=== PATIENT | male | born 1960 | race Caucasian/White ===

== ENCOUNTER 2017-10-12 09:52 | Emergency (ER) | payer SELFPAY ==
[~2017-10-12] VITALS: Wt 95.3 kg
[~2017-10-12 09:52] MED LIST: MOTRIN800 MG PO; PROTONIX40 MG PO
[2017-10-18] MEDS ORDERED: COLACE100 MG PO (12:27)
[2017-10-18] MEDS ORDERED: NORCO 5-325 TA1 EACH PO ×2 (12:27→12:56)
[2017-10-18] MEDS ORDERED: IBUPROFEN600 MG PO (12:27)
== END 2017-10-12 10:37 | disposition home or self-care (01) ==
LOC: ED 09:52
DX: S49.91XA Unspecified injury of right shoulder and upper arm, initial encounter (principal); K46.9 Unspecified abdominal hernia without obstruction or gangrene; R10.31 Right lower quadrant pain; F17.200 Nicotine dependence, unspecified, uncomplicated; Z90.49 Acquired absence of other specified parts of digestive tract; Z79.899 Other long term (current) drug therapy; W19.XXXA Unspecified fall, initial encounter; Y93.89 Activity, other specified; Y92.099 Unspecified place in other non-institutional residence as the place of occurrence of the external cause; Y99.9 Unspecified external cause status

== ENCOUNTER → 2017-10-18 | Day surgery (SDC) | payer SELFPAY ==
[~2017-10-18] VITALS: Ht 177.8 cm; Wt 95.3 kg
[~2017-10-18] MED LIST changes: +COLACE100 MG PO; +IBUPROFEN600 MG PO; +NORCO 5-325 TA1 EACH PO
[2017-10-18 08:00] VITALS: BP 129/89
[2017-10-18 12:17] VITALS: BP 153/76
[2017-10-18 12:32] VITALS: BP 169/83
[2017-10-18 12:47] VITALS: BP 163/94
[2017-10-18 13:01] VITALS: BP 137/79
[2017-10-18 13:17] VITALS: BP 163/94
== END | disposition home or self-care (01) ==
LOC: SDC 10-14 09:30
DX: K40.90 Unilateral inguinal hernia, without obstruction or gangrene, not specified as recurrent (principal); K21.9 Gastro-esophageal reflux disease without esophagitis; Z90.49 Acquired absence of other specified parts of digestive tract; F17.210 Nicotine dependence, cigarettes, uncomplicated; I10 Essential (primary) hypertension; E78.00 Pure hypercholesterolemia, unspecified

== ENCOUNTER 2021-06-30 18:44 | Inpatient (IN) | payer OTHER ==
[~2021-06-30] VITALS: Ht 180.3 cm; Wt 95.4 kg
[2021-06-30 18:48] VITALS: BP 158/86
[2021-06-30 20:15] LABS: HEMATOCRIT 43.3 % (42.0-52.0); MEAN CELL VOLUME 89.5 fl (80.0-94.0); MEAN CORPUSCULAR HGB 33.1 pg (27.0-31.0); MEAN PLATELET VOLUME 11.5 fl (9.6-12.3); PLATELET COUNT AUTOMATED 111 10*3/uL (130-400); RED BLOOD COUNT 4.84 10*6/uL (4.50-5.90); RED CELL DISTRI WIDTH 13.4 % (0-14.5); WHITE BLOOD COUNT 4.1 10*3/uL (4.8-10.8)
[2021-06-30 20:32] LABS: ALKALINE PHOSPHATASE 193 U/L (45-117); BUN 11 mg/dl (7-24); CHLORIDE 93 mmol/L (98-107); CREATININE 1.15 mg/dL (0.70-1.30); POTASSIUM 3.3 mmol/L (3.5-5.1); SGOT/AST 93 IU/L (3-35); SGPT/ALT 44 U/L (12-78); SODIUM 130 mmol/L (136-145); TOTAL PROTEIN 7.9 gm/dL (6.4-8.2)
[2021-06-30 20:49] LABS: MANUAL DIFF REFLEX YES
[2021-06-30 20:52] LABS: ATYPICAL LYMPHS 1 % (0-0); TOTAL CELLS COUNTED 100 #CELLS
[2021-06-30 20:53] LABS: PLATELET SUFFICIENCY LOW (NORMAL); STOMATOCYTE FEW
[2021-07-01 00:30] VITALS: BP 170/100
[2021-07-01 02:09] LABS: BILIRUBIN Negative (Negative); BLOOD Negative (Negative); CLARITY Clear (Clear); COLOR Dark Yellow (Yellow); GLUCOSE Trace (Negative); KETONE Trace (Negative); LEUKO ESTERASE Negative (Negative); NITRITE Negative (Negative); SPECIFIC GRAVITY >= 1.030 (1.001-1.030)
[2021-07-01 02:11] LABS: PH 8.5 (4.5-8.0)
[2021-07-01 02:24] VITALS: BP 170/100
[2021-07-01 06:41] LABS: MEAN CELL VOLUME 92.4 fl (80.0-94.0); MEAN CORPUSCULAR HGB 32.8 pg (27.0-31.0); MEAN CORPUSCULAR HGB CONC 35.5 g/dl (33.0-37.0); PLATELET COUNT AUTOMATED 103 10*3/uL (130-400); RED BLOOD COUNT 4.76 10*6/uL (4.50-5.90); RED CELL DISTRI WIDTH 13.7 % (0-14.5)
[2021-07-01 06:44] LABS: MANUAL DIFF REFLEX YES
[2021-07-01 06:57] LABS: ALKALINE PHOSPHATASE 173 U/L (45-117); BUN 14 mg/dl (7-24); CHLORIDE 95 mmol/L (98-107); CHOLESTEROL 159 mg/dL (<200); CREATININE 1.06 mg/dL (0.70-1.30); POTASSIUM 3.3 mmol/L (3.5-5.1); SGOT/AST 78 IU/L (3-35); SGPT/ALT 41 U/L (12-78); SODIUM 133 mmol/L (136-145); TOTAL PROTEIN 7.5 gm/dL (6.4-8.2)
[2021-07-01 07:01] LABS: FREE T4 0.97 ng/dl (0.76-1.46); LDL CHOLESTEROL 91 mg/dL (9-159); THYROID STIM HORMONE (HS) 0.915 uIU/ml (0.358-4.75); TRIGLYCERIDES 117 mg/dl (<150)
[2021-07-01 07:56] LABS: ATYPICAL LYMPHS 1 % (0-0); BASOPHILS 2 % (0-1); TOTAL CELLS COUNTED 100 #CELLS
[2021-07-01 07:57] LABS: PLATELET SUFFICIENCY LOW (NORMAL)
[2021-07-01 08:00] VITALS: BP 136/82
[2021-07-01 11:12] VITALS: BP 136/80
[2021-07-01 16:00] VITALS: BP 121/30
[2021-07-01 20:00] VITALS: BP 124/58
[2021-07-02] VITALS (11 sets, daily range): BP systolic 124–172; BP diastolic 60–97
[2021-07-02 06:37] LABS: MEAN CELL VOLUME 92.7 fl (80.0-94.0); MEAN CORPUSCULAR HGB 32.7 pg (27.0-31.0); MEAN CORPUSCULAR HGB CONC 35.2 g/dl (33.0-37.0); MEAN PLATELET VOLUME 12.5 fl (9.6-12.3); PLATELET COUNT AUTOMATED 87 10*3/uL (130-400); RED BLOOD COUNT 4.53 10*6/uL (4.50-5.90); RED CELL DISTRI WIDTH 13.7 % (0-14.5); WHITE BLOOD COUNT 4.9 10*3/uL (4.8-10.8)
[2021-07-02 06:53] LABS: ALKALINE PHOSPHATASE 145 U/L (45-117); BUN 13 mg/dl (7-24); CHLORIDE 95 mmol/L (98-107); CREATININE 1.05 mg/dL (0.70-1.30); SGOT/AST 64 IU/L (3-35); SGPT/ALT 38 U/L (12-78); SODIUM 133 mmol/L (136-145); TOTAL PROTEIN 6.6 gm/dL (6.4-8.2)
[2021-07-02 07:20] LABS: MANUAL DIFF REFLEX YES
[2021-07-02 07:23] LABS: PLATELET SUFFICIENCY LOW (NORMAL); TOTAL CELLS COUNTED 100 #CELLS
[2021-07-03] VITALS: BP 146/84
[2021-07-03 05:46] LABS: BUN 14 mg/dl (7-24); CHLORIDE 100 mmol/L (98-107); CREATININE 0.86 mg/dL (0.70-1.30); POTASSIUM 3.2 mmol/L (3.5-5.1); SODIUM 133 mmol/L (136-145)
[2021-07-03 05:56] LABS: HEMATOCRIT 36.4 % (42.0-52.0); MEAN CELL VOLUME 93.1 fl (80.0-94.0); MEAN CORPUSCULAR HGB 32.7 pg (27.0-31.0); MEAN CORPUSCULAR HGB CONC 35.2 g/dl (33.0-37.0); MEAN PLATELET VOLUME 12.8 fl (9.6-12.3); PLATELET COUNT AUTOMATED 107 10*3/uL (130-400); RED BLOOD COUNT 3.91 10*6/uL (4.50-5.90); RED CELL DISTRI WIDTH 13.8 % (0-14.5); WHITE BLOOD COUNT 11.5 10*3/uL (4.8-10.8)
[2021-07-03 06:36] LABS: MANUAL DIFF REFLEX YES
[2021-07-03 07:51] LABS: ATYPICAL LYMPHS 13 % (0-0); BASOPHILS 1 % (0-1); PLATELET SUFFICIENCY LOW (NORMAL); TOTAL CELLS COUNTED 100 #CELLS
[2021-07-03 08:00] VITALS: BP 156/88
[2021-07-03] MEDS ORDERED: PRILOSEC20 M1 PO (08:51)
[2021-07-03] MEDS ORDERED: ZOFRAN4 MG PO (09:46)
[2021-07-03] MEDS ORDERED: COLACE100 MG PO (09:46)
[2021-07-03] MEDS ORDERED: PERCOCET 5-3251 EACH PO (09:46)
[2021-07-03] MEDS ORDERED: K-TAB20 MEQ PO (09:51)
== END 2021-07-03 11:05 | disposition home or self-care (01) | DRG 263 ==
LOC: ED 18:44 → 5E 22:57 → EDHOLD 22:57 → 5E 23:45
PROVIDERS: Emergency Medicine; Hospitalist; Internal Medicine; ADMIT Family Medicine; ATTEND Family Medicine
PROC: 0FT44ZZ Resection of Gallbladder, Percutaneous Endoscopic Approach (ICD-10-PCS; principal; 2021-07-02)
PROC: 3E0T3BZ Introduction of Anesthetic Agent into Peripheral Nerves and Plexi, Percutaneous Approach (ICD-10-PCS; 2021-07-02)
PROC: 3E0T33Z Introduction of Anti-inflammatory into Peripheral Nerves and Plexi, Percutaneous Approach (ICD-10-PCS; 2021-07-02)
DX: K81.0 Acute cholecystitis (principal); K82.1 Hydrops of gallbladder; E87.1 Hypo-osmolality and hyponatremia; K76.0 Fatty (change of) liver, not elsewhere classified; R19.7 Diarrhea, unspecified; R74.01 Elevation of levels of liver transaminase levels; E87.6 Hypokalemia; E83.42 Hypomagnesemia; R73.9 Hyperglycemia, unspecified; F17.210 Nicotine dependence, cigarettes, uncomplicated; K21.9 Gastro-esophageal reflux disease without esophagitis; D64.9 Anemia, unspecified; E87.8 Other disorders of electrolyte and fluid balance, not elsewhere classified; Z71.6 Tobacco abuse counseling

== ENCOUNTER 2022-04-13 12:48 | Emergency (ER) | payer OTHER ==
[~2022-04-13] VITALS: Ht 177.8 cm; Wt 90.7 kg
[~2022-04-13 12:48] MED LIST changes: +K-TAB20 MEQ PO; +PERCOCET 5-3251 EACH PO; +PRILOSEC20 M1 PO; +ZOFRAN4 MG PO
== END 2022-04-13 15:46 ==
LOC: ED 12:48
DX: Z53.21 Procedure and treatment not carried out due to patient leaving prior to being seen by health care provider (principal)

== ENCOUNTER 2022-09-30 19:02 | Inpatient (IN) | payer OTHER ==
[~2022-09-30] VITALS: Ht 177.8 cm; Wt 88.0 kg
[2022-09-30 19:54] VITALS: BP 102/72
[2022-09-30 20:06] VITALS: BP 133/93
[2022-09-30 21:13] LABS: HEMATOCRIT 35.6 % (42.0-52.0); MEAN CORPUSCULAR HGB 37.8 pg (27.0-31.0); MEAN PLATELET VOLUME 12.1 fl (9.6-12.3); PLATELET COUNT AUTOMATED 239 10*3/uL (130-400); RED BLOOD COUNT 3.39 10*6/uL (4.50-5.90); RED CELL DISTRI WIDTH 15.9 % (0-14.5); WHITE BLOOD COUNT 15.5 10*3/uL (4.8-10.8)
[2022-09-30 21:19] LABS: MANUAL DIFF REFLEX YES
[2022-09-30 21:26] VITALS: BP 138/77
[2022-09-30 21:35] LABS: ALKALINE PHOSPHATASE 130 U/L (46-116); BUN 13 mg/dl (9-23); CHLORIDE 92 mmol/L (98-107); POTASSIUM 3.3 mmol/L (3.4-5.1); SGPT/ALT 28 U/L (10-49); TOTAL PROTEIN 6.8 gm/dL (6.0-8.0)
[2022-09-30 21:52] LABS: BILIRUBIN 3+ (Negative); BLOOD 2+ (Negative); CLARITY Turbid (Clear); COLOR Orange (Yellow); GLUCOSE Negative (Negative); KETONE Negative (Negative); LEUKO ESTERASE 2+ (Negative); NITRITE Positive (Negative); SPECIFIC GRAVITY >= 1.030 (1.001-1.030); UROBILINOGEN 0.2 E.U./dl (0.0-1.0)
[2022-09-30 21:52] LABS: TOTAL CELLS COUNTED 100 #CELLS
[2022-09-30 21:53] LABS: BURR CELLS FEW; PLATELET SUFFICIENCY NORMAL (NORMAL); POLYCHROMASIA SLIGHT; SPHEROCYTES FEW; TARGET CELLS FEW
[2022-09-30 22:13] LABS: BACTERIA 2+; HYALINE CAST 41-50
[2022-09-30 22:14] LABS: WBC 16-20 wbc/hpf (0-5)
[2022-09-30 22:15] LABS: RBC 16-20 rbc/hpf (0-2)
[2022-09-30 23:32] VITALS: BP 112/78
[2022-10-01] VITALS (9 sets, daily range): BP systolic 88–134; BP diastolic 37–92
[2022-10-01 06:16] LABS: ACT PARTIAL THROMBO TIME 34.2 SECONDS (20.0-32.1); INTERNATIONAL NORM RATIO 1.7 (2.0-3.5)
[2022-10-01 06:28] LABS: BASO # 0.2 10*3/uL (0.0-0.1); EOS # 0.5 10*3/uL (0.0-0.4); HEMATOCRIT 33.8 % (42.0-52.0); LYMPH # 2.4 10*3/uL (1.3-4.4); LYMPH % 15.4 % (27.0-41.0); MEAN CORPUSCULAR HGB 37.8 pg (27.0-31.0); MEAN CORPUSCULAR HGB CONC 36.4 g/dl (33.0-37.0); MEAN PLATELET VOLUME 12.3 fl (9.6-12.3); MONO # 1.4 10*3/uL (0.1-1.0); MONO % 8.9 % (3.0-9.0); NEUT # 10.9 10*3/uL (2.3-7.9); NEUT % 71.2 % (47.0-73.0); PLATELET COUNT AUTOMATED 211 10*3/uL (130-400); RED BLOOD COUNT 3.25 10*6/uL (4.50-5.90); RED CELL DISTRI WIDTH 15.7 % (0-14.5); WHITE BLOOD COUNT 15.2 10*3/uL (4.8-10.8)
[2022-10-01 07:28] LABS: ALKALINE PHOSPHATASE 126 U/L (46-116); BUN 13 mg/dl (9-23); CHLORIDE 94 mmol/L (98-107); FREE T4 1.36 ng/dl (0.89-1.76); POTASSIUM 3.4 mmol/L (3.4-5.1); SGPT/ALT 27 U/L (10-49); THYROID STIM HORMONE (HS) 1.788 uIU/ml (0.550-4.780); TOTAL PROTEIN 6.6 gm/dL (6.0-8.0)
[2022-10-01 07:40] LABS: ETHYL ALCOHOL < 3.0 mg/dl (<3)
[2022-10-01 08:07] LABS: CHOLESTEROL 94 mg/dL (<200); TRIGLYCERIDES 84 mg/dl (<150)
[2022-10-02] VITALS: BP 90/56
[2022-10-02 06:17] LABS: BASO # 0.2 10*3/uL (0.0-0.1); BASO % 1.1 % (0.0-1.0); EOS # 0.5 10*3/uL (0.0-0.4); EOS % 3.7 % (1.0-4.0); HEMATOCRIT 33.1 % (42.0-52.0); LYMPH # 2.6 10*3/uL (1.3-4.4); LYMPH % 19.5 % (27.0-41.0); MEAN CELL VOLUME 106.1 fl (80.0-94.0); MEAN CORPUSCULAR HGB 38.5 pg (27.0-31.0); MEAN CORPUSCULAR HGB CONC 36.3 g/dl (33.0-37.0); MEAN PLATELET VOLUME 12.5 fl (9.6-12.3); MONO # 1.4 10*3/uL (0.1-1.0); MONO % 10.3 % (3.0-9.0); NEUT # 8.7 10*3/uL (2.3-7.9); PLATELET COUNT AUTOMATED 209 10*3/uL (130-400); RED BLOOD COUNT 3.12 10*6/uL (4.50-5.90); WHITE BLOOD COUNT 13.4 10*3/uL (4.8-10.8)
[2022-10-02 07:11] LABS: BUN 13 mg/dl (9-23); CHLORIDE 93 mmol/L (98-107); POTASSIUM 3.9 mmol/L (3.4-5.1)
[2022-10-02 08:00] VITALS: BP 99/75
[2022-10-02 12:00] VITALS: BP 117/76
[2022-10-02 16:00] VITALS: BP 103/63
[2022-10-02 20:00] VITALS: BP 90/56
[2022-10-03] VITALS: BP 108/66
[2022-10-03 07:02] LABS: BASO # 0.1 10*3/uL (0.0-0.1); EOS # 0.4 10*3/uL (0.0-0.4); EOS % 2.7 % (1.0-4.0); HEMATOCRIT 32.4 % (42.0-52.0); LYMPH # 2.5 10*3/uL (1.3-4.4); LYMPH % 19.1 % (27.0-41.0); MEAN CELL VOLUME 106.2 fl (80.0-94.0); MEAN CORPUSCULAR HGB 38.7 pg (27.0-31.0); MEAN CORPUSCULAR HGB CONC 36.4 g/dl (33.0-37.0); MONO # 1.5 10*3/uL (0.1-1.0); MONO % 11.2 % (3.0-9.0); NEUT # 8.7 10*3/uL (2.3-7.9); NEUT % 65.2 % (47.0-73.0); PLATELET COUNT AUTOMATED 219 10*3/uL (130-400); RED BLOOD COUNT 3.05 10*6/uL (4.50-5.90); RED CELL DISTRI WIDTH 15.8 % (0-14.5); WHITE BLOOD COUNT 13.3 10*3/uL (4.8-10.8)
[2022-10-03 08:00] VITALS: BP 111/70
[2022-10-03 08:02] LABS: ALKALINE PHOSPHATASE 125 U/L (46-116); BUN 12 mg/dl (9-23); CHLORIDE 92 mmol/L (98-107); SGPT/ALT 26 U/L (10-49); TOTAL PROTEIN 6.2 gm/dL (6.0-8.0)
[2022-10-03 12:00] VITALS: BP 110/70
[2022-10-03 16:00] VITALS: BP 115/72
[2022-10-03 20:00] VITALS: BP 107/55
[2022-10-04] VITALS: BP 96/62
[2022-10-04 06:17] LABS: HEMATOCRIT 31.3 % (42.0-52.0); MEAN CELL VOLUME 106.8 fl (80.0-94.0); MEAN CORPUSCULAR HGB 37.9 pg (27.0-31.0); MEAN CORPUSCULAR HGB CONC 35.5 g/dl (33.0-37.0); MEAN PLATELET VOLUME 12.3 fl (9.6-12.3); PLATELET COUNT AUTOMATED 189 10*3/uL (130-400); RED BLOOD COUNT 2.93 10*6/uL (4.50-5.90); RED CELL DISTRI WIDTH 16.1 % (0-14.5); WHITE BLOOD COUNT 13.1 10*3/uL (4.8-10.8)
[2022-10-04 06:29] LABS: MANUAL DIFF REFLEX YES
[2022-10-04 06:36] LABS: ALKALINE PHOSPHATASE 114 U/L (46-116); BUN 10 mg/dl (9-23); CHLORIDE 96 mmol/L (98-107); POTASSIUM 3.7 mmol/L (3.4-5.1); SGPT/ALT 24 U/L (10-49); TOTAL PROTEIN 5.7 gm/dL (6.0-8.0)
[2022-10-04 06:40] LABS: ACT PARTIAL THROMBO TIME 32.3 SECONDS (20.0-32.1); INTERNATIONAL NORM RATIO 1.7 (2.0-3.5)
[2022-10-04 07:28] LABS: PLATELET SUFFICIENCY NORMAL (NORMAL); POLYCHROMASIA SLIGHT; TOTAL CELLS COUNTED 100 #CELLS
[2022-10-04 07:29] LABS: BURR CELLS FEW
[2022-10-04 08:00] VITALS: BP 95/72
[2022-10-04 12:00] VITALS: BP 114/82
[2022-10-04 16:00] VITALS: BP 104/57
[2022-10-04 20:00] VITALS: BP 98/69
[2022-10-05] VITALS (8 sets, daily range): BP systolic 97–104; BP diastolic 55–71
[2022-10-05 06:18] LABS: INTERNATIONAL NORM RATIO 1.6 (2.0-3.5)
[2022-10-05 06:33] LABS: ALKALINE PHOSPHATASE 106 U/L (46-116); BUN 8 mg/dl (9-23); CHLORIDE 97 mmol/L (98-107); POTASSIUM 3.6 mmol/L (3.4-5.1); SGPT/ALT 21 U/L (10-49); TOTAL PROTEIN 5.8 gm/dL (6.0-8.0)
[2022-10-05 07:04] LABS: HEMATOCRIT 29.9 % (42.0-52.0); MEAN CELL VOLUME 106.8 fl (80.0-94.0); MEAN CORPUSCULAR HGB 38.2 pg (27.0-31.0); MEAN CORPUSCULAR HGB CONC 35.8 g/dl (33.0-37.0); PLATELET COUNT AUTOMATED 163 10*3/uL (130-400); RED CELL DISTRI WIDTH 16.5 % (0-14.5); WHITE BLOOD COUNT 12.1 10*3/uL (4.8-10.8)
[2022-10-05 07:08] LABS: MANUAL DIFF REFLEX YES
[2022-10-05 07:24] LABS: BASOPHILS 1 % (0-1); TOTAL CELLS COUNTED 100 #CELLS
[2022-10-05 07:25] LABS: PLATELET SUFFICIENCY NORMAL (NORMAL); POLYCHROMASIA SLIGHT; ROULEAUX SLIGHT; TARGET CELLS FEW; TOXIC GRANULATION SLIGHT
[2022-10-05] MEDS ORDERED: SPIRONOLACTONE100 MG PO (16:48)
[2022-10-05] MEDS ORDERED: FUROSEMIDE40 MG PO (16:48)
[2022-10-06 09:07] LABS: ACID FAST SPEC PROCESSING Direct Inoculation (.)
== END 2022-10-05 23:32 | disposition home or self-care (01) | DRG 720 ==
LOC: ED 19:02 → EDHOLD 10-01 00:53 → 4E 10-01 00:53 → 5E 10-01 13:01 → 4E 10-03 15:53
PROVIDERS: Emergency Medicine; Internal Medicine; Student in an Organized Health Care Education/Training Program; ADMIT Family Medicine; ATTEND Family Medicine
PROC: 0W9G3ZZ Drainage of Peritoneal Cavity, Percutaneous Approach (ICD-10-PCS; principal; 2022-10-05)
DX: A41.9 Sepsis, unspecified organism (principal); E87.20 Acidosis, unspecified; E43 Unspecified severe protein-calorie malnutrition; K21.9 Gastro-esophageal reflux disease without esophagitis; N39.0 Urinary tract infection, site not specified; E87.1 Hypo-osmolality and hyponatremia; E83.42 Hypomagnesemia; E87.6 Hypokalemia; E87.8 Other disorders of electrolyte and fluid balance, not elsewhere classified; R73.9 Hyperglycemia, unspecified; R74.01 Elevation of levels of liver transaminase levels; F17.210 Nicotine dependence, cigarettes, uncomplicated; E80.6 Other disorders of bilirubin metabolism; D53.9 Nutritional anemia, unspecified; J90 Pleural effusion, not elsewhere classified; R65.20 Severe sepsis without septic shock; R94.31 Abnormal electrocardiogram [ECG] [EKG]; F10.10 Alcohol abuse, uncomplicated; R31.0 Gross hematuria; K40.90 Unilateral inguinal hernia, without obstruction or gangrene, not specified as recurrent; J44.9 Chronic obstructive pulmonary disease, unspecified; K76.0 Fatty (change of) liver, not elsewhere classified; J98.11 Atelectasis; K70.31 Alcoholic cirrhosis of liver with ascites; Z71.6 Tobacco abuse counseling; Z90.49 Acquired absence of other specified parts of digestive tract; Z82.49 Family history of ischemic heart disease and other diseases of the circulatory system; Z82.3 Family history of stroke; Z68.28 Body mass index [BMI] 28.0-28.9, adult

== ENCOUNTER 2022-10-14 14:02 | Inpatient (IN) | payer OTHER ==
[~2022-10-14] VITALS: Ht 177.8 cm; Wt 84.4 kg
[~2022-10-14 14:02] MED LIST changes: +FUROSEMIDE40 MG PO; +SPIRONOLACTONE100 MG PO
[2022-10-14 14:27] VITALS: BP 107/80
[2022-10-14 15:18] LABS: MANUAL DIFF REFLEX YES; MEAN CORPUSCULAR HGB 37.1 pg (27.0-31.0); MEAN CORPUSCULAR HGB CONC 35.6 g/dl (33.0-37.0); MEAN PLATELET VOLUME 11.4 fl (9.6-12.3); PLATELET COUNT AUTOMATED 296 10*3/uL (130-400); RED BLOOD COUNT 3.75 10*6/uL (4.50-5.90); WHITE BLOOD COUNT 17.1 10*3/uL (4.8-10.8)
[2022-10-14 15:27] LABS: INTERNATIONAL NORM RATIO 1.4 (2.0-3.5)
[2022-10-14 15:39] LABS: ALKALINE PHOSPHATASE 153 U/L (46-116); BUN 6 mg/dl (9-23); CHLORIDE 97 mmol/L (98-107); LIPASE 40 U/L (12-53); POTASSIUM 3.7 mmol/L (3.4-5.1); SGPT/ALT 40 U/L (10-49); TOTAL PROTEIN 7.4 gm/dL (6.0-8.0)
[2022-10-14 15:41] LABS: BASOPHILS 1 % (0-1); TOTAL CELLS COUNTED 100 #CELLS
[2022-10-14 15:42] LABS: PLATELET SUFFICIENCY NORMAL (NORMAL)
[2022-10-14 15:44] LABS: TARGET CELLS FEW
[2022-10-14 17:28] LABS: BILIRUBIN 1+ (Negative); BLOOD 3+ (Negative); CLARITY Clear (Clear); COLOR Orange (Yellow); GLUCOSE Negative (Negative); KETONE Negative (Negative); LEUKO ESTERASE Trace (Negative); NITRITE Negative (Negative); PH 5.5 (4.5-8.0); SPECIFIC GRAVITY 1.015 (1.001-1.030)
[2022-10-14 17:44] LABS: BACTERIA 1+; HYALINE CAST 16-20; RBC 41-50 rbc/hpf (0-2)
[2022-10-14 17:45] LABS: MUCOUS 1+
[2022-10-14 20:07] VITALS: BP 122/76
[2022-10-14 20:22] VITALS: BP 119/78
[2022-10-14] MEDS ORDERED: VENT7GM INH (20:52)
[2022-10-14] MEDS ORDERED: ONDANSETRON HYDR8 MG PO (20:53)
[2022-10-14] MEDS ORDERED: OMEPRAZOLE MAGN20 MG PO (20:53)
[2022-10-14 23:01] VITALS: BP 134/82
[2022-10-15] VITALS: BP 134/82
[2022-10-15 07:14] LABS: BASO # 0.2 10*3/uL (0.0-0.1); BASO % 1.2 % (0.0-1.0); EOS # 0.4 10*3/uL (0.0-0.4); EOS % 2.5 % (1.0-4.0); HEMATOCRIT 31.8 % (42.0-52.0); LYMPH # 2.3 10*3/uL (1.3-4.4); LYMPH % 16.7 % (27.0-41.0); MEAN CELL VOLUME 103.9 fl (80.0-94.0); MEAN CORPUSCULAR HGB 37.6 pg (27.0-31.0); MEAN CORPUSCULAR HGB CONC 36.2 g/dl (33.0-37.0); MEAN PLATELET VOLUME 11.9 fl (9.6-12.3); MONO # 1.4 10*3/uL (0.1-1.0); MONO % 10.4 % (3.0-9.0); NEUT # 9.5 10*3/uL (2.3-7.9); NEUT % 68.3 % (47.0-73.0); PLATELET COUNT AUTOMATED 215 10*3/uL (130-400); RED BLOOD COUNT 3.06 10*6/uL (4.50-5.90); RED CELL DISTRI WIDTH 14.8 % (0-14.5); WHITE BLOOD COUNT 13.9 10*3/uL (4.8-10.8)
[2022-10-15 07:19] LABS: INTERNATIONAL NORM RATIO 1.5 (2.0-3.5)
[2022-10-15 07:49] LABS: ALKALINE PHOSPHATASE 126 U/L (46-116); BUN 6 mg/dl (9-23); CHLORIDE 101 mmol/L (98-107); POTASSIUM 3.4 mmol/L (3.4-5.1); SGPT/ALT 28 U/L (10-49)
[2022-10-15 07:51] LABS: VITAMIN D, 25-HYDROXY 20.5 ng/mL (30-100)
[2022-10-15 08:00] VITALS: BP 107/71
[2022-10-15 12:00] VITALS: BP 115/75
[2022-10-15 16:00] VITALS: BP 109/61
[2022-10-15 20:00] VITALS: BP 129/80
[2022-10-16 01:00] VITALS: BP 117/78
[2022-10-16 06:08] LABS: BASO # 0.2 10*3/uL (0.0-0.1); BASO % 1.3 % (0.0-1.0); EOS # 0.5 10*3/uL (0.0-0.4); EOS % 3.1 % (1.0-4.0); HEMATOCRIT 31.9 % (42.0-52.0); LYMPH % 19.9 % (27.0-41.0); MEAN CELL VOLUME 103.9 fl (80.0-94.0); MEAN CORPUSCULAR HGB 37.5 pg (27.0-31.0); MEAN CORPUSCULAR HGB CONC 36.1 g/dl (33.0-37.0); MEAN PLATELET VOLUME 11.9 fl (9.6-12.3); MONO # 1.5 10*3/uL (0.1-1.0); MONO % 9.9 % (3.0-9.0); NEUT # 9.8 10*3/uL (2.3-7.9); NEUT % 65.1 % (47.0-73.0); PLATELET COUNT AUTOMATED 231 10*3/uL (130-400); RED BLOOD COUNT 3.07 10*6/uL (4.50-5.90); RED CELL DISTRI WIDTH 14.8 % (0-14.5)
[2022-10-16 06:15] LABS: ALKALINE PHOSPHATASE 115 U/L (46-116); BUN 6 mg/dl (9-23); CHLORIDE 100 mmol/L (98-107); POTASSIUM 3.6 mmol/L (3.4-5.1); SGPT/ALT 26 U/L (10-49)
[2022-10-16 08:00] VITALS: BP 118/84
[2022-10-16 12:00] VITALS: BP 116/72
[2022-10-16 16:00] VITALS: BP 119/74
[2022-10-16 20:00] VITALS: BP 121/76
[2022-10-17] VITALS: BP 109/64
[2022-10-17 07:27] LABS: BASO # 0.2 10*3/uL (0.0-0.1); EOS # 0.4 10*3/uL (0.0-0.4); EOS % 2.7 % (1.0-4.0); HEMATOCRIT 34.8 % (42.0-52.0); LYMPH # 2.4 10*3/uL (1.3-4.4); MEAN CELL VOLUME 105.1 fl (80.0-94.0); MEAN CORPUSCULAR HGB 37.5 pg (27.0-31.0); MEAN CORPUSCULAR HGB CONC 35.6 g/dl (33.0-37.0); MEAN PLATELET VOLUME 11.5 fl (9.6-12.3); MONO # 1.3 10*3/uL (0.1-1.0); MONO % 8.3 % (3.0-9.0); NEUT # 11.7 10*3/uL (2.3-7.9); NEUT % 72.3 % (47.0-73.0); PLATELET COUNT AUTOMATED 265 10*3/uL (130-400); RED BLOOD COUNT 3.31 10*6/uL (4.50-5.90); WHITE BLOOD COUNT 16.2 10*3/uL (4.8-10.8)
[2022-10-17 07:48] LABS: BUN 6 mg/dl (9-23); CHLORIDE 97 mmol/L (98-107); POTASSIUM 3.2 mmol/L (3.4-5.1)
[2022-10-17 08:00] VITALS: BP 96/62
[2022-10-17 12:00] VITALS: BP 120/80
[2022-10-17 16:00] VITALS: BP 115/71
[2022-10-17 20:00] VITALS: BP 120/76
[2022-10-18] VITALS: BP 107/75
[2022-10-18 07:20] LABS: BASO # 0.2 10*3/uL (0.0-0.1); EOS # 0.5 10*3/uL (0.0-0.4); EOS % 2.9 % (1.0-4.0); HEMATOCRIT 37.3 % (42.0-52.0); LYMPH # 3.1 10*3/uL (1.3-4.4); LYMPH % 17.4 % (27.0-41.0); MEAN CELL VOLUME 106.9 fl (80.0-94.0); MEAN CORPUSCULAR HGB 37.8 pg (27.0-31.0); MEAN CORPUSCULAR HGB CONC 35.4 g/dl (33.0-37.0); MEAN PLATELET VOLUME 11.3 fl (9.6-12.3); MONO # 1.2 10*3/uL (0.1-1.0); MONO % 6.9 % (3.0-9.0); NEUT # 12.5 10*3/uL (2.3-7.9); PLATELET COUNT AUTOMATED 296 10*3/uL (130-400); RED BLOOD COUNT 3.49 10*6/uL (4.50-5.90); RED CELL DISTRI WIDTH 15.5 % (0-14.5); WHITE BLOOD COUNT 17.5 10*3/uL (4.8-10.8)
[2022-10-18 07:58] LABS: ALKALINE PHOSPHATASE 121 U/L (46-116); BUN 7 mg/dl (9-23); CHLORIDE 102 mmol/L (98-107); POTASSIUM 3.5 mmol/L (3.4-5.1); SGPT/ALT 24 U/L (10-49)
[2022-10-18 08:00] VITALS: BP 100/66
[2022-10-18 12:00] VITALS: BP 92/50
[2022-10-18 16:00] VITALS: BP 104/69
[2022-10-18 20:00] VITALS: BP 100/65
[2022-10-19] VITALS: BP 93/55
[2022-10-19 05:19] LABS: ALKALINE PHOSPHATASE 112 U/L (46-116); BUN 5 mg/dl (9-23); CHLORIDE 101 mmol/L (98-107); POTASSIUM 3.1 mmol/L (3.4-5.1); SGPT/ALT 23 U/L (10-49); TOTAL PROTEIN 6.8 gm/dL (6.0-8.0)
[2022-10-19 06:29] LABS: BASO # 0.2 10*3/uL (0.0-0.1); EOS # 0.6 10*3/uL (0.0-0.4); EOS % 3.9 % (1.0-4.0); HEMATOCRIT 35.3 % (42.0-52.0); LYMPH # 2.9 10*3/uL (1.3-4.4); LYMPH % 18.2 % (27.0-41.0); MEAN CELL VOLUME 106.6 fl (80.0-94.0); MEAN CORPUSCULAR HGB 37.8 pg (27.0-31.0); MEAN CORPUSCULAR HGB CONC 35.4 g/dl (33.0-37.0); MEAN PLATELET VOLUME 11.7 fl (9.6-12.3); MONO # 1.4 10*3/uL (0.1-1.0); MONO % 8.7 % (3.0-9.0); NEUT # 10.7 10*3/uL (2.3-7.9); NEUT % 67.4 % (47.0-73.0); PLATELET COUNT AUTOMATED 264 10*3/uL (130-400); RED BLOOD COUNT 3.31 10*6/uL (4.50-5.90); RED CELL DISTRI WIDTH 15.3 % (0-14.5)
[2022-10-19 08:00] VITALS: BP 111/78
[2022-10-19 11:13] LABS: HBSAG Negative (Negative); HEP B CORE AB, IGM Negative (Negative); HEPATITIS C ANTIBODY Non Reactive (Non Reactive)
[2022-10-19 12:00] VITALS: BP 121/78
[2022-10-19 16:00] VITALS: BP 121/74
[2022-10-19 20:00] VITALS: BP 118/66
[2022-10-20] VITALS: BP 111/72
[2022-10-20 04:53] LABS: ALKALINE PHOSPHATASE 104 U/L (46-116); BUN 6 mg/dl (9-23); CHLORIDE 102 mmol/L (98-107); POTASSIUM 3.5 mmol/L (3.4-5.1); SGPT/ALT 17 U/L (10-49); TOTAL PROTEIN 6.2 gm/dL (6.0-8.0)
[2022-10-20 06:25] LABS: BASO # 0.2 10*3/uL (0.0-0.1); BASO % 1.1 % (0.0-1.0); EOS # 0.6 10*3/uL (0.0-0.4); EOS % 3.6 % (1.0-4.0); HEMATOCRIT 32.7 % (42.0-52.0); LYMPH # 3.1 10*3/uL (1.3-4.4); MEAN CELL VOLUME 104.1 fl (80.0-94.0); MEAN CORPUSCULAR HGB 37.3 pg (27.0-31.0); MEAN CORPUSCULAR HGB CONC 35.8 g/dl (33.0-37.0); MEAN PLATELET VOLUME 11.8 fl (9.6-12.3); MONO # 1.5 10*3/uL (0.1-1.0); MONO % 9.1 % (3.0-9.0); NEUT # 10.8 10*3/uL (2.3-7.9); NEUT % 66.5 % (47.0-73.0); PLATELET COUNT AUTOMATED 261 10*3/uL (130-400); RED BLOOD COUNT 3.14 10*6/uL (4.50-5.90); RED CELL DISTRI WIDTH 15.5 % (0-14.5); WHITE BLOOD COUNT 16.2 10*3/uL (4.8-10.8)
[2022-10-20 08:00] VITALS: BP 105/65
[2022-10-20 12:00] VITALS: BP 116/61
[2022-10-20 13:07] LABS: TB1 Ag VALUE 0.01 IU/mL (.)
[2022-10-20 13:12] LABS: BF LYMPHOCYTES 15 %; BF MACROPHAGES 60 %; BF MESOTHELIALS 6 %; BF NEUTROPHILS 19 %
[2022-10-20] MEDS ORDERED: CIPRO500 MG PO ×2 (15:24)
[2022-10-20] MEDS ORDERED: LEVOFLOXACIN750 M2 PO (16:02)
== END 2022-10-20 16:09 | disposition home or self-care (01) | DRG 720 ==
LOC: ED 14:02 → 4E 18:14 → 5E 18:14 → EDHOLD 18:14 → 4E 22:02 → 5E 10-16 19:17
PROVIDERS: Family Medicine; Internal Medicine; Internal Medicine Infectious Disease; Student in an Organized Health Care Education/Training Program; ADMIT Internal Medicine; ATTEND Internal Medicine
PROC: 0W9G3ZZ Drainage of Peritoneal Cavity, Percutaneous Approach (ICD-10-PCS; principal; 2022-10-20)
DX: A41.9 Sepsis, unspecified organism (principal); E87.20 Acidosis, unspecified; F17.210 Nicotine dependence, cigarettes, uncomplicated; E43 Unspecified severe protein-calorie malnutrition; R65.20 Severe sepsis without septic shock; J44.9 Chronic obstructive pulmonary disease, unspecified; N30.01 Acute cystitis with hematuria; K70.31 Alcoholic cirrhosis of liver with ascites; E87.1 Hypo-osmolality and hyponatremia; R74.01 Elevation of levels of liver transaminase levels; E87.8 Other disorders of electrolyte and fluid balance, not elsewhere classified; R73.9 Hyperglycemia, unspecified; J90 Pleural effusion, not elsewhere classified; K21.9 Gastro-esophageal reflux disease without esophagitis; E80.6 Other disorders of bilirubin metabolism; D53.9 Nutritional anemia, unspecified; Z90.49 Acquired absence of other specified parts of digestive tract; Z82.49 Family history of ischemic heart disease and other diseases of the circulatory system; Z82.3 Family history of stroke; Z79.51 Long term (current) use of inhaled steroids; Z80.42 Family history of malignant neoplasm of prostate; Z79.899 Other long term (current) drug therapy; Z68.27 Body mass index [BMI] 27.0-27.9, adult

== ENCOUNTER 2023-03-10 16:59 | Emergency (ER) | payer OTHER ==
[2023-03-14] MEDS ORDERED: MYCAMINE100 MG IV (17:06)
[2023-03-14] MEDS ORDERED: LEVOFLOXACIN750 M2 PO (17:06)
[2023-03-14] MEDS ORDERED: CEFTRIAXON2 GM/50 ML IV (17:06)
== END 2023-03-10 18:40 | disposition home or self-care (01) ==
LOC: ED 16:59
DX: K70.31 Alcoholic cirrhosis of liver with ascites (principal); F17.210 Nicotine dependence, cigarettes, uncomplicated; Z79.899 Other long term (current) drug therapy; Z90.49 Acquired absence of other specified parts of digestive tract; Z98.890 Other specified postprocedural states

== ENCOUNTER → 2023-03-10 | Day surgery (SDC) | payer OTHER ==
[~2023-03-10] MED LIST changes: +CEFTRIAXON2 GM/50 ML IV; +CIPRO500 MG PO; +ELIQUIS5 M1 PO; +HEPARIN 2525000 UNIT IV; +LACTULOSE10 GM/154 PO; +LASIX20 MG PO; +LEVOFLOXACIN750 M2 PO; +MAGNESIUM OXID250 M2 PO; +MIRTAZAPINE7.5 MG PO; +NATURE'S BLEND F1 MG PO; +OMEPRAZOLE MAGN20 MG PO; +OMNICEF300 MG PO; +ONDANSETRON HYDR8 MG PO; +PANTOPRAZOLE SO40 MG PO; +POTASSIUM CHLO20 ME4 PO; +PROVENTIL HFA6.7 GM INH; +SPIRONOLACTONE50 M1 PO; +VENT7GM INH; +ZITHROMAX500 MG PO
== END | disposition home or self-care (01) ==
PROVIDERS: ATTEND Internal Medicine
DX: R18.8 Other ascites (principal); K74.60 Unspecified cirrhosis of liver

== ENCOUNTER → 2023-05-24 | Outpatient (CLI) | payer OTHER ==
[~2023-05-24] MED LIST changes: +Carafate1 GM PO; +HYDROCODONE-AC1 EAC1 PO; +KRISTALOSE20 GM PO; +MUCUS RELIEF600 MG PO; +MYCAMINE100 MG IV; +NATURE'S BLEND100 M2 PO; +TAB-A-VITE TA400 MCG PO
== END | disposition home or self-care (01) ==
LOC: CANPRECLI → RAD 04-07 11:00 → US 04-07 11:00 → RAD 04-28 11:00 → US 04-28 11:00
PROVIDERS: ATTEND Internal Medicine
DX: R18.8 Other ascites (principal); K74.60 Unspecified cirrhosis of liver

== ENCOUNTER → 2023-06-22 | Outpatient (CLI) | payer OTHER ==
[~2023-06-22] MED LIST changes: +LACTULOSE20 GM/30 M PO
== END ==
LOC: EDSTATUS 11:00
PROVIDERS: ATTEND Registered Nurse
DX: K70.31 Alcoholic cirrhosis of liver with ascites (principal)

== ENCOUNTER → 2023-06-29 | Outpatient (CLI) | payer OTHER | LOC: EDSTATUS 11:00 | PROVIDERS: ATTEND Registered Nurse | DX: R14.0 Abdominal distension (gaseous) (principal); R18.8 Other ascites ==

== ENCOUNTER → 2023-07-26 | Outpatient (CLI) | payer OTHER ==
[~2023-07-26] MED LIST changes: +ALDACTONE25 MG PO
== END | disposition home or self-care (01) ==
LOC: EDSTATUS 07-06 11:00
PROVIDERS: ATTEND Registered Nurse
DX: R18.8 Other ascites (principal)

== ENCOUNTER → 2023-09-14 | Outpatient (CLI) | payer OTHER ==
[2023-09-14 11:40] LABS: ACT PARTIAL THROMBO TIME 29.2 SECONDS (20.0-32.1)
== END | disposition home or self-care (01) ==
LOC: EDSTATUS 09-08 11:00
PROVIDERS: ATTEND Registered Nurse
DX: R18.8 Other ascites (principal)

== ENCOUNTER → 2023-10-27 | Outpatient (CLI) | payer OTHER ==
[~2023-10-27] MED LIST changes: +ALBUMIN 25% 100 ML IV ONE
[2023-10-27 15:57] LABS: BASO # 0.1 10*3/uL (0.0-0.1); BASO % 1.4 % (0.0-1.0); EOS # 0.2 10*3/uL (0.0-0.4); EOS % 2.5 % (1.0-4.0); HEMATOCRIT 32.4 % (42.0-52.0); LYMPH # 1.8 10*3/uL (1.3-4.4); LYMPH % 19.3 % (27.0-41.0); MEAN CELL VOLUME 98.8 fl (80.0-94.0); MEAN CORPUSCULAR HGB 33.2 pg (27.0-31.0); MEAN CORPUSCULAR HGB CONC 33.6 g/dl (33.0-37.0); MEAN PLATELET VOLUME 12.5 fl (9.6-12.3); MONO # 1.1 10*3/uL (0.1-1.0); NEUT # 5.9 10*3/uL (2.3-7.9); NEUT % 64.6 % (47.0-73.0); PLATELET COUNT AUTOMATED 245 10*3/uL (130-400); RED BLOOD COUNT 3.28 10*6/uL (4.50-5.90); RED CELL DISTRI WIDTH 19.1 % (0-14.5); WHITE BLOOD COUNT 9.2 10*3/uL (4.8-10.8)
== END | disposition home or self-care (01) ==
LOC: EDSTATUS 10-26 11:00 → LAB 14:24
PROVIDERS: Nurse Practitioner Family; ATTEND Registered Nurse
DX: K74.60 Unspecified cirrhosis of liver (principal); R18.8 Other ascites

== ENCOUNTER 2023-11-02 00:44 | Emergency (ER) | payer OTHER ==
[2023-11-02] VITALS (12 sets, daily range): BP systolic 94–134; BP diastolic 46–82
[~2023-11-02] VITALS: Ht 172.7 cm; Wt 75.7 kg
[~2023-11-02 00:44] MED LIST changes: -ALBUMIN 25% 100 ML IV ONE
[2023-11-02] MEDS ORDERED: Pantoprazole Sodium 40 MG VIAL IV ONE (00:50)
[2023-11-02] MEDS ORDERED: SODIUM CHLORIDE 0.9% 1,000 ML IV SCH (00:55)
[2023-11-02] MEDS ORDERED: OCTREOTIDE ACETATE 500 MCG in SODIUM CHLORIDE 0.9% 100 ML IV SCH (00:55)
[2023-11-02] MEDS ORDERED: SODIUM CHLORIDE 0.9% 1,000 ML IV ONE ×3 (01:00→10:15)
[2023-11-02 01:07] LABS: HEMATOCRIT 25.2 % (42.0-52.0); MEAN CELL VOLUME 97.7 fl (80.0-94.0); MEAN CORPUSCULAR HGB 33.3 pg (27.0-31.0); MEAN CORPUSCULAR HGB CONC 34.1 g/dl (33.0-37.0); MEAN PLATELET VOLUME 12.5 fl (9.6-12.3); PLATELET COUNT AUTOMATED 286 10*3/uL (130-400); RED BLOOD COUNT 2.58 10*6/uL (4.50-5.90); WHITE BLOOD COUNT 18.2 10*3/uL (4.8-10.8)
[2023-11-02] MEDS ORDERED: SODIUM CHLORIDE 0.9% 500 ML IV ONE ×2 (01:08→08:56)
[2023-11-02] MEDS ORDERED: Ondansetron Hydrochloride 4 MG/2 ML VIAL IV ONE (01:10)
[2023-11-02 01:11] LABS: MANUAL DIFF REFLEX YES
[2023-11-02] MEDS ORDERED: SODIUM CHLORIDE 0.9% 100 ML IV ONE (01:15)
[2023-11-02 01:29] LABS: PLATELET SUFFICIENCY NORMAL (NORMAL); TOTAL CELLS COUNTED 100 #CELLS
[2023-11-02 01:30] LABS: BURR CELLS MANY; SCHISTOCYTES FEW
[2023-11-02 01:37] LABS: POTASSIUM 4.6 mmol/L (3.4-5.1); TOTAL PROTEIN 5.1 gm/dL (6.0-8.0)
[2023-11-02] MEDS ORDERED: Lactated Ringer's Solution 1,000 ML IV ONE (04:30)
[2023-11-02] MEDS ORDERED: DIAZEPAM 10 MG/2 ML SYR IV ONE ×2 (05:25→06:45)
[2023-11-02] MEDS ORDERED: LORazepam 2 MG/ML VIAL IV ONE (06:45)
[2023-11-02 06:55] LABS: HEMATOCRIT 33.1 % (42.0-52.0); MANUAL DIFF REFLEX YES; MEAN CELL VOLUME 104.7 fl (80.0-94.0); MEAN CORPUSCULAR HGB 32.9 pg (27.0-31.0); MEAN CORPUSCULAR HGB CONC 31.4 g/dl (33.0-37.0); MEAN PLATELET VOLUME 13.1 fl (9.6-12.3); PLATELET COUNT AUTOMATED 222 10*3/uL (130-400); RED BLOOD COUNT 3.16 10*6/uL (4.50-5.90); RED CELL DISTRI WIDTH 17.1 % (0-14.5); WHITE BLOOD COUNT 25.7 10*3/uL (4.8-10.8)
[2023-11-02 07:10] LABS: TOTAL CELLS COUNTED 100 #CELLS
[2023-11-02 07:11] LABS: BURR CELLS MODERATE; OVALOCYTES FEW; PLATELET SUFFICIENCY NORMAL (NORMAL); POLYCHROMASIA SLIGHT; TARGET CELLS FEW; TOXIC GRANULATION SLIGHT; VACUOLATION OF NEUTROPHILS SLIGHT
[2023-11-02] MEDS ORDERED: NOREPINEPHRINE BITARTRATE/D5W 250 ML IV SCH (10:05)
== END 2023-11-02 12:28 | disposition short-term general hospital (02) ==
LOC: ED 00:44
PROVIDERS: Internal Medicine
DX: K92.2 Gastrointestinal hemorrhage, unspecified (principal); D72.829 Elevated white blood cell count, unspecified; D53.9 Nutritional anemia, unspecified; E44.0 Moderate protein-calorie malnutrition; Z68.1 Body mass index [BMI] 19.9 or less, adult; K74.60 Unspecified cirrhosis of liver; Z90.49 Acquired absence of other specified parts of digestive tract; Z98.890 Other specified postprocedural states; F10.10 Alcohol abuse, uncomplicated; F17.210 Nicotine dependence, cigarettes, uncomplicated